=== PATIENT | male | born 1975 | race Caucasian/White ===

== ENCOUNTER 2020-05-20 16:47 | Emergency (ER) | payer OTHER, SELFPAY ==
[2020-05-20 16:57] VITALS: BP 138/88; PULSE 126; RESP 16; TEMP 36.7; O2SAT 93; BMI 28.8
--- NOTE | 2020-05-20 17:48 | CT_ITS ---
EXAMINATION: CT HEAD WITHOUT CONTRAST CLINICAL INFORMATION: Overdose. Hit head on floor. COMPARISON: None TECHNIQUE: Contiguous axial imaging was performed from the skull base to vertex without intravenous administration of contrast. This CT examination was performed using dose optimization techniques as appropriate, variously including the following: *Automated exposure control *Adjustment of mA and/or kV according to patient size (this includes techniques or standardized protocols for targeted exams where dose is matched to indication/reason for exam; i.e. extremities or head) *Use of iterative reconstruction technique DLP: 736 mGy-cm FINDINGS: There is no evidence of acute intracranial hemorrhage or territorial infarction. No abnormal mass effect or midline shift is seen. Davis to white matter differentiation is well preserved. No extra-axial fluid collections are identified. The ventricles are normal in size. There is no abnormal attenuation within the brain parenchyma. The osseous structures and soft tissues are normal. The mastoid air cells and visualized portions of the paranasal sinuses are well aerated. CT/CT head/brain wo con IMPRESSION: No acute intracranial pathology.
--- NOTE | 2020-05-20 17:50 | ED_ITS ---
HPI - Overdose General Chief Complaint: Overdose Stated Complaint: SUBSTANCE ABUSE,FALL Time Seen by Provider: 05/20/20 17:44 Source: patient and EMS Mode of arrival: EMS Limitations: no limitations History of Present Illness HPI Narrative: Patient is brought by EMS from [facility]. Patient was found in the bathroom at [place], patient was checking in for detox. Patient admits to using 5 bags of heroin, in the bathroom, states he hit his head on the forehead, is not sure if he had loss of consciousness. Patient is somnolent but awake, giving limited history. Patient did not receive any Narcan. Related Data Allergies Allergy/AdvReac Type Severity Reaction Status Date / Time No Known Allergies Allergy Verified 05/20/20 17:47 Review of Systems Review of Systems: Constitutional : Weight loss, no malaise ENT/Mouth : No Hearing loss, No Ear Pain, No Nasal Congestion, No Sinus Pain, No Hoarseness, No sore throat, No Rhinorrhea, No Swallowing Difficulty Eyes: No Eye Pain, No Swelling, No Redness, No Foreign Body, No Discharge, No Vision Changes Cardiovascular : No Chest Pain, No SOB, No Dyspnea on Exertion, No Orthopnea, No Edema, No Palpitations Respiratory : No Cough, No Sputum, No Wheezing, No Smoke Exposure, No Dyspnea Gastrointestinal : No Nausea, No Vomiting, No Diarrhea, No Constipation, No abdominal Pain, No Hematochezia, No Melena Genitourinary : no irregular bleeding, No Dysuria, No Urinary Frequency, No Hematuria, No Urinary Incontinence, No Urgency, No Flank Pain, No Urinary Flow Changes, No Hesitancy Musculoskeletal : No joint pain, No Myalgias, No Joint Swelling Skin : Small abrasion to forehead Neuro : No Weakness, No Numbness, No Paresthesias, No Loss of Consciousness, No Dizziness, No Headache Psych : Denies suicidal or homicidal ideation Heme/Lymph: No Bruising, No Bleeding,No Lymphadenopathy Endocrine : No Polyuria, No Polydipsia, No Temperature Intolerance PMFSH Past Medical History Medical History Drug abuse Social History Social History Advance Directives: No Advance Directives Information Provided: Yes Physical Exam Vital Signs: Vital Signs: Last Vital Signs Temp 97.5 F 05/20/20 20:00 Pulse 104 H 05/20/20 20:00 Resp 16 05/20/20 20:00 BP 154/78 H 05/20/20 20:00 Pulse Ox 99 05/20/20 20:00 Body Mass Index 28.8 Appearance: Alert., somnolent, calm and cooperative Eyes: Pinpoint pupils, round and reactive to light. ENT: Pharynx normal. Neck: Normal inspection. Neck supple. No lymph nodes noted. No crepitus CVS: Normal heart rate and rhythm. Pulses normal. Normal S1 and S2 Respiratory: No respiratory distress. Breath sounds normal. No Wheezing. No rales Abdomen: Soft and nontender. No rigidity. No distention. good BS x4 Skin: Skin , mildly diaphoretic Extremities: No lower extremity edema. No lower extremity edema. No Lacerations. No Rash Neuro: Cranial nerves 2 through 12 grossly intact Course Course Course Narrative: Patient's CT scan was negative for acute intracranial pathology. Patient is awake alert, patient's nurse spoke to the [place] staff, there is a bed available for the patient. Patient is ready for discharge. MDM - Overdose Lab Data Labs: Lab Results 05/20/20 Range/Units 19:28 Urine Opiates Screen POSITIVE H (Not Detect) Ur Barbiturates Screen Not Detected (Not Detect) Ur Phencyclidine Scrn Not Detected (Not Detect) Ur Amphetamines Screen Not Detected (Not Detect) U Benzodiazepines Scrn Not Detected (Not Detect) Urine Cocaine Screen Not Detected (Not Detect) U Marijuana (THC) Screen Not Detected (Not Detect) Imaging Data CT scan - head: Radiologist's impression: There is no evidence of acute intracranial hemorrhage or territorial infarction. No abnormal mass effect or midline shift is seen. Davis to white matter differentiation is well preserved. No extra-axial fluid collections are identified. The ventricles are normal in size. There is no abnormal attenuation within the brain parenchyma. The osseous structures and soft tissues are normal. The mastoid air cells and visualized portions of the paranasal sinuses are well aerated. CT/CT head/brain wo con IMPRESSION: No acute intracranial pathology. Discharge Plan Discharge Clinical Impression: Drug overdose Patient Disposition: Home, Self-Care Instructions: Adult Overdose (ED) Additional Instructions: You are being discharged to the program in [place]. Please follow-up with your primary care physician tomorrow. If you have any worsening or new sympt oms, please return to the emergency room or call 911
[2020-05-20 20:00] VITALS: BP 154/78; PULSE 104; RESP 16; TEMP 36.4; O2SAT 99
--- NOTE | 2020-05-20 20:04 | PC.NURSE ---
PT MORE ALERT AT THIS TIME THAN PREVIOUSLY, REMAINS SLIGHTLY SOMNOLENT THOUGH EASILY ROUSED. AMBULATING INDEPENDENTLY, ABLE TO SPEAK IN FULL SENTENCES. SPOKE WITH [facility], THEY ARE HOLDING HIS BED. REQUESTING DRUG SCREEN AND ALL RESULTS BE FAXED OVER. URINE SPECIMEN OBTAINED. AWAITING RESULTS.
[2020-05-20 20:10] LABS: Amphetamine Screen Urine Not Detected (Not Detect); Barbiturates, Urine Not Detected (Not Detect); Benzodiazepines Screen Urine Not Detected (Not Detect); Cannabinoid Screen Urine Not Detected (Not Detect); Cocaine Screen Urine Not Detected (Not Detect); Opiate Screen Urine POSITIVE (Not Detect); Phencyclidine Screen Urine Not Detected (Not Detect)
--- NOTE | 2020-05-20 21:14 | PC.NURSE ---
call made out to [facility]. they can take him in for 0100h. tissue recovery technician aware, will attempt to coordinate transportation
--- NOTE | 2020-05-20 21:51 | MHC.CARE ---
Pt arrived by ambulance from [facility], where pt had an intake for detox placement, however pt used 5 bags of heroin in the bathroom, fell, and hit his head. Pt has been medically cleared and, with the support of the gymnastics coach or instructor, was able to confirm that pt still has a bed at [facility] with plannned admission for 1am. Transportation will be requested via Lyft.
--- NOTE | 2020-05-20 23:26 | MHC.CARE ---
Lyft ordered, pt departed from ED at 23:30
== END 2020-05-20 23:32 | disposition home or self-care (01) ==
PROVIDERS: Emergency Provider Emergency Medicine
DX: T40.1X1A Poisoning by heroin, accidental (unintentional), initial encounter (principal); Y92.9 Unspecified place or not applicable; F11.10 Opioid abuse, uncomplicated; Z71.51 Drug abuse counseling and surveillance of drug abuser
CPT/HCPCS: 70450; 80307; 99283; 99284

== ENCOUNTER 2020-05-21 00:28 | Emergency (ER) | payer OTHER, SELFPAY ==
[2020-05-21 00:37] VITALS: BP 161/88; BP 178/84; PULSE 120; PULSE 130; RESP 22; O2SAT 93; BMI 28.8
--- NOTE | 2020-05-21 01:06 | ED.GENADULT ---
HPI - General Adult General Chief complaint: ETOH/Substance Use Stated complaint: Pcp Time Seen by Provider: 05/21/20 01:05 Source: EMS Mode of arrival: EMS Limitations: altered mental status History of Present Illness HPI narrative: Patient comes to emergency room by EMS, patient was seen here a few hours ago for substance abuse, patient returned to the emergency room after being discharged, patient used PCP and then once again return to the emergency room intoxicated MD complaint: PCP use Related Data Allergies Allergy/AdvReac Type Severity Reaction Status Date / Time No Known Allergies Allergy Verified 05/20/20 17:47 Review of Systems Review of Systems: Yes Unobtainable due to mental status PMFSH Past Medical History Medical History Drug abuse Social History Social History Alcohol intake: never Smoking Status: Never smoker Use of substances other than those prescribed or required for medical reasons: Yes Substance Use Type: Amphetamines and Heroin Advance Directives: No Advance Directives Information Provided: No Physical Exam Vital Signs: Vital Signs: Last Vital Signs Pulse 130 H 05/21/20 00:37 Resp 22 H 05/21/20 00:37 BP 161/88 H 05/21/20 00:37 Pulse Ox 93 05/21/20 00:37 Body Mass Index 28.8 Appearance: Alert. Patient intoxicated, shaking his head Eyes: Pupils equal, round and reactive to light. ENT: Pharynx normal. Neck: Normal inspection. Neck supple. No lymph nodes noted. No crepitus CVS: Normal heart rate and rhythm. Pulses normal. Normal S1 and S2 Respiratory: No respiratory distress. Breath sounds normal. No Wheezing. No rales Abdomen: Soft and nontender. No rigidity. No distention. good BS x4 Skin: Skin warm , mildly diaphoretic Extremities: No lower extremity edema. No lower extremity edema. No Lacerations. No Rash Neuro: Oriented X 3. No motor deficit. No sensory deficit. Moving all extermities. No slurred speech. Course Course Course Narrative: This is the patient's 2nd visit today for the same reason. Patient admits using drugs. At this time, patient moves bed, cooperative. Metabolize to freedom, then patient may be discharged home. sign out given to Dr. Clemens Discharge Plan Discharge Clinical Impression: Active substance abuse Patient Disposition: Home, Self-Care Instructions: Polysubstance Abuse (ED) Additional Instructions: Please stop using drugs. Please follow-up with your primary care physician tomorrow. If you have any worsening or new symptoms, please return to the emergency room or call 911
--- NOTE | 2020-05-21 03:02 | PC.NURSE ---
PATIENT GETTING UP AND AMBULATING AROUND NURSES STATION AND TO BATHROOM, ASKING FOR THE PROVIDER. PATIENT STATING THAT HE IS NOW SUICIDAL. ASKING PATIENT WHAT HAS CHANGED BECAUSE PATIENT HAS BEEN HERE MULTIPLE TIMES TODAY, AND WAS GOING TO DETOX. JUST STATING HE SEES A THERAPIST AND IS NOW SUICIDAL. PLAN OF CARE WAS TO DISCHARGE PATIENT, PATIENT WAS NOT AGREEABLE TO THAT PLAN AND MADE THE SI STATEMENTS WHILE PROVIDER WAS DISCUSSING PLAN OF CARE.
[2020-05-21 03:07] VITALS: BP 115/66; PULSE 81; RESP 16; O2SAT 97
[2020-05-21 03:38] VITALS: BP 139/73; PULSE 80; RESP 16; TEMP 36.8; O2SAT 97
--- NOTE | 2020-05-21 04:03 | PC.NURSE ---
FAXED TO TWO DIFFERENT FAXES FOR N. CALLED TO ENSURE THEY RECEIVED THE FAX. PATIENT CALM AND COOPERATIVE WITH CARE.
[2020-05-21 06:00] VITALS: RESP 16
--- NOTE | 2020-05-21 07:10 | PC.NURSE ---
REPORT FROM SAQIB CALI PT IS CALM AND COOPERATIVE, SITTER AT BEDSIDE, WAITING FOR [facility] EVALUATION
--- NOTE | 2020-05-21 08:28 | PC.NURSE ---
BREAKFAST TAKEN WELL WAITING FOR Bryce
[2020-05-21 08:32] VITALS: BP 127/68; PULSE 86; RESP 18; TEMP 35.6; O2SAT 95
--- NOTE | 2020-05-21 09:42 | PC.NURSE ---
REPORT RECEIVED FROM KARELY PEARSON. PT IS ALERT, RR EVEN, SPEAKS IN FULL SENTENCES, SKIN IS PWDI, AND HE IS IN NAD CURRENTLY RESTING. AWAITING [facility] FOLLOW UP.
[2020-05-21 12:20] VITALS: BP 143/71; PULSE 94; RESP 16; O2SAT 99
--- NOTE | 2020-05-21 12:46 | PC.NURSE ---
[facility] HERE TO RONN ANGEL
[2020-05-21 13:00] LABS: Hematocrit 35.1 % (42-52); Hemoglobin 10.8 g/dl (14.0-18.0); Mean Corpuscular HGB Conc 30.8 g/dl (31.0-36.0); Mean Corpuscular Hemoglobin 26.7 pg (27.0-33.0); Mean Corpuscular Volume 86.9 fL (80-98); Mean Platelet Volume 14.2 fL (9.4-12.4); Platelet Count 126 X10*3/uL (160-400); Red Blood Count 4.04 X10*6/uL (4.60-5.80); Red Cell Distribution Width 13.7 % (11.0-16.0); WBC ABN SCTR FOR CBC 1
[2020-05-21 13:01] LABS: PLT ABN DIST 1
[2020-05-21 13:19] LABS: Ethanol < 10 mg/dL
[2020-05-21 13:20] LABS: Band Neutrophils Percent 0 % (3-5); Eosinophils Percent Manual 6 % (0-4); Lymphocytes Percent Manual 34 % (20-40); Monocytes Percent Manual 16 % (2-11); Neutrophils Percent Manual 44 % (45-73); Platelet Estimate DECREASED (NORMAL)
[2020-05-21 13:22] LABS: Large Platelet PRESENT; Microcytosis 1+; Platelet Morphology Comment NOTED
[2020-05-21 13:23] LABS: Alanine Aminotransferase 45 U/L (0-40); Albumin Level 3.8 g/dL (3.5-5.0); Alkaline Phosphatase 71 U/L (39-117); Anion Gap 12 (12-20); Aspartate Amino Transferase 34 U/L (5-37); Bilirubin Direct 0.2 mg/dL (0.0-0.5); Bilirubin Total 0.4 mg/dL (0.0-1.0); Blood Urea Nitrogen 20 mg/dL (9-16); Calcium 8.5 mg/dL (8.4-10.2); Carbon Dioxide 27 mmol/L (22-29); Chloride 104 mmol/L (96-108); Creatinine Clr Calc Pharmacy 133.5; Estimated Glomerular Filt Rate > 60; Glucose Random 144 mg/dL (60-115); Hypochromasia 1+; Potassium 3.6 mmol/l (3.3-5.1); RBC Morphology NOTED; Sodium 139 mmol/L (135-145); Total Protein 6.4 g/dL (6.5-8.0)
[2020-05-21 13:24] LABS: Eosinophils Absolute Manual 0.3 X10*3/UL (0.0-0.8); Lymphocytes Absolute Manual 1.9 X10*3/uL (0.6-4.8); Monocytes Absolute Manual 0.9 X10*3/uL (0.0-1.2); Neutrophils Absolute Manual 2.5 X10*3/uL (2.2-7.9); White Blood Count 5.6 X10*3/uL (4.8-10.8)
--- NOTE | 2020-05-21 13:56 | PC.NURSE ---
CLEARED FOR DC BY ATTENDING AND N
== END 2020-05-21 13:57 | disposition home or self-care (01) ==
PROVIDERS: Emergency Medicine; Emergency Provider Emergency Medicine
DX: F19.10 Other psychoactive substance abuse, uncomplicated (principal); F10.129 Alcohol abuse with intoxication, unspecified; Y90.9 Presence of alcohol in blood, level not specified; Z71.41 Alcohol abuse counseling and surveillance of alcoholic; Z71.51 Drug abuse counseling and surveillance of drug abuser
CPT/HCPCS: 36415; 80048; 80076; 80320; 85007; 85025; 85027; 99284; 99285